=== PATIENT | male | born 1960 | race African-American/Black ===

== ENCOUNTER 2022-08-06 15:39 | Outpatient (CLI) | payer MEDICARE ==
[2022-08-06 15:48] LABS: Bilirubin Negative (Negative); Blood, Urine Trace (Negative); Clarity Clear (Clear); Glucose, Urine (Dipstick) Negative (Negative); Ketone, Urine Negative (Negative); Leukocyte Large (Negative); Nitrite Negative (Negative); Protein, Urine (Dipstick) Negative (Neg-Trace); Urobilinogen 0.2 mg/dL (Less than 2); pH, Urine 6.5 (5.0-9.0)
[2022-08-06 15:54] LABS: Bacteria/HPF None Seen HPF (None Seen); RBC/HPF 0-3 HPF (0-3); Squamous Epithelial 0-3 HPF (0-3); WBC/HPF 0-3 HPF (0-3)
[2022-08-06 15:59] LABS: Follow-up Result - Urinalysis REPORT FAXED; Follow-up UA Comp? YES
== END 2022-08-06 15:40 | disposition home or self-care (01) ==
LOC: NAV LAB 15:39
PROVIDERS: ATTEND Physical Medicine & Rehabilitation
DX: N39.0 Urinary tract infection, site not specified (principal)
CPT/HCPCS: 81001